=== PATIENT | female | born 1955 | race Caucasian/White ===

== ENCOUNTER 2017-06-12 00:14 | Emergency (ER) | payer OTHER ==
--- NOTE | 2017-06-12 00:48 | ED PDOC ---
Arrival/HPI - General Chief Complaint: Chest Pain Time Seen by Provider: 06/12/17 00:20 Historian: Family - History of Present Illness Narrative History of Present Illness (Text): 06/12/17 00:32 A 62 year old female whose past medical history includes diabetes, CAD, and hypertension, who presents to the emergency department with chest tightness radiating to her neck and palpitations. Patient's son notes she was traveling in a vehicle for about 14 hours today. On arrival to the notes, she had the similar episode a week ago while in [place]. Patient was found to be in SVT and cardioverted after 2 doses of Adenosine. The patient denies symptoms of fever, chills, headache, nausea, vomiting , diarrhea, or any other complaints. Time/Duration: 4-6 hours, Other Symptom Course: Unchanged Quality: Tightness Activities at Onset: Light Context: Sitting, Home Past Medical History - Provider Review Nursing Documentation Reviewed: Yes - Infectious Disease Hx of Infectious Diseases: None - Reproductive Menopause: No - Cardiac Hx Hypertension: Yes - HEENT Hx Cataracts: Yes (c extraction rt eye) - Endocrine/Metabolic Hx Diabetes Mellitus Type 2: Yes - Musculoskeletal/Rheumatological Hx Back Pain: Yes - Gastrointestinal Other/Comment: umbilical hernia - Psychiatric Hx Substance Use: No - Anesthesia Hx Anesthesia: No Family/Social History - Physician Review Nursing Documentation Reviewed: Yes Family/Social History: No Known Family HX Smoking Status: Never Smoked Hx Alcohol Use: No Hx Substance Use: No Allergies/Home Meds Allergies/Adverse Reactions: Allergies No Known Allergies Allergy (Unverified 06/12/17 00:32) Home Medications: Home Meds Medication Instructions Recorded Confirmed Alogliptin Benzoate [Nesina] 25 mg PO DAILY 06/12/17 06/12/17 Aspirin [Aspirin Chewable] 81 mg PO BID 06/12/17 06/12/17 Atorvastatin [Lipitor] 40 mg PO DAILY 06/12/17 06/12/17 Calcium/Vitamin D [Oyster Shell 750 mg PO DAILY 06/12/17 06/12/17 Calcium/Vitamin D 500 mg-200 IU] Chlordiazepoxide/Clidinium Br 1 cap PO DAILY 06/12/17 06/12/17 [Chlordiazepoxide-Clidinium Cap] Gabapentin [Neurontin] 300 mg PO DAILY 06/12/17 06/12/17 Glipizide [Glipizide Xl] 5 mg PO DAILY 06/12/17 06/12/17 Insulin Aspart Prot/Insuln Asp 10 units SC QPM 06/12/17 06/12/17 [Novolog Mix 70-30 Vial] Insulin Aspart Prot/Insuln Asp 40 units SC QAM 06/12/17 06/12/17 [Novolog Mix 70-30 Vial] Lipase/Protease/Amylase [Zenpep Dr 25,000 units PO TID 06/12/17 06/12/17 25,000 Units Capsule] Metoprolol Succinate [Toprol XL] 50 mg PO BID 06/12/17 06/12/17 Amma-3 Fatty Acids/Fish Oil [Fish 1,000 mg PO BID 06/12/17 06/12/17 Oil 1,000 mg Capsule] Ranolazine [Ranexa] 500 mg PO BID 06/12/17 06/12/17 metFORMIN [glucOPHAGE] 500 mg PO BID 06/12/17 06/12/17 Review of Systems - Physician Review All systems were reviewed & negative as marked: Yes - Review of Systems Constitutional: Normal. absent: Fevers Respiratory: Normal. absent: SOB, Cough Cardiovascular: Chest Pain (chest pain radiated to jaw and neck), Palpitations Gastrointestinal: Normal. absent: Diarrhea, Nausea, Vomiting Genitourinary Female: Normal Musculoskeletal: Normal Skin: Normal Neurological: Normal. absent: Headache, Dizziness Physical Exam Vital Signs Reviewed: Yes Vital Signs Temp Pulse Resp BP Pulse Ox 06/12/17 01:40 80 16 145/55 L 97 06/12/17 00:49 98.3 F 81 18 140/49 L 98 06/12/17 00:25 147 H 18 156/59 H 95 Temperature: Afebrile Blood Pressure: Normal Pulse: Tachycardic Respiratory Rate: Normal Appearance: Positive for: Well-Appearing, Non-Toxic, Comfortable Pain Distress: None Mental Status: Positive for: Alert and Oriented X 3 - Systems Exam Head: Present: Atraumatic, Normocephalic Pupils: Present: PERRL Extroacular Muscles: Present: EOMI Conjunctiva: Present: Normal Mouth: Present: Moist Mucous Membranes Neck: Present: Normal Range of Motion Respiratory/Chest: Present: Clear to Auscultation, Good Air Exchange. No: Respiratory Distress, Accessory Muscle Use Cardiovascular: Present: Normal S1, S2, Tachycardic. No: Murmurs Abdomen: Present: Normal Bowel Sounds. No: Tenderness, Distention, Peritoneal Signs Back: Present: Normal Inspection Upper Extremity: Present: Normal Inspection. No: Cyanosis, Edema Lower Extremity: Present: Normal Inspection. No: Edema Neurological: Present: GCS=15, CN II-XII Intact, Speech Normal Skin: Present: Warm, Dry, Normal Color. No: Rashes Psychiatric: Present: Alert, Oriented x 3, Normal Insight, Normal Concentration Medical Decision Making ED Course and Treatment: 06/12/17 00:51 Impression: A 62 year old female patient with chest pain radiating to her neck and palpitations. Plan: -- EKG -- Labs -- Chest X-ray -- Adenosine and Aspirin -- Reassess and disposition Progress Notes: 06/12/17 00:32 EKG: Ordered, reviewed, and independently interpreted the EKG. Rate : 142 BPM Rhythm : SVT Interpretation : Non-specific St- wave changes. 06/12/17 00:45 EKG: Ordered, reviewed, and independently interpreted the EKG. Rate : 82 BPM Rhythm : NSR Interpretation : No acute changes 06/12/17 01:33 Chest X-ray: No acute processes 06/12/17 01:35 Pt. converted to a NSR following administration of Adenosine to treat SVT. 06/12/17 02:03 Discussed results and plan with pt and family. Pt was offered hospital admission for further evaluation and monitoring. Family wishes to follow up outpatient with their PMD. Pt will sign out against medical advice. The patient is choosing to leave against medical advice. I have personally explained to the patient that choosing to do so may result in permanent bodily harm or . I have discussed at great length that without further evaluation and monitoring there may be unforeseen circumstances and/or deterioration causing permanent bodily harm or as a result of their choice. The patient is alert, oriented, and shows the mental capacity to make clear decisions regarding the patients health care at this time. The patient continues to wish to leave against medical advice. In light of the patients decision to leave against medical advice, patient has been advised that they should return to the emergency room immediately if they change their mind at any time, or if their condition begins to change or worsen in any way. - Lab Interpretations Lab Results: 06/12/17 00:35 06/12/17 00:35 Lab Results 06/12/17 00:35: WBC 9.3, RBC 4.45, Hgb 13.4, Hct 37.8, MCV 84.9, MCH 30.1, MCHC 35.4, RDW 12.9, Plt Count 307, MPV 10.0 06/12/17 00:35: Sodium 136, Potassium 4.6, Chloride 101, Carbon Dioxide 23, Anion Gap 17, BUN 16, Creatinine 0.9, Est GFR ( Amer) > 60, Est GFR (Non- Af Amer) > 60, Random Glucose 307 H*, Calcium 9.6, Total Bilirubin 0.4, AST 26, ALT 33, Alkaline Phosphatase 69, Lactate Dehydrogenase 357, Total Creatine Kinase 35, Troponin I < 0.01, Total Protein 7.5, Albumin 4.1, Globulin 3.4, Albumin/Globulin Ratio 1.2 06/12/17 00:35: PT 10.6, INR 0.98, APTT 26.4 - RAD Interpretation Radiology Orders: 06/12/17 00:33 CHEST PORTABLE [RAD] Stat - Medication Orders Current Medication Orders: Discontinued Medications Adenosine (Adenosine 6 Mg/2 Ml Inj) 6 mg IVP STAT STA Stop: 06/12/17 00:33 Last Admin: 06/12/17 00:25 Dose: 6 mg Aspirin (Aspirin) 325 mg PO ONCE STA Stop: 06/12/17 00:42 Last Admin: 06/12/17 00:55 Dose: Aspirin (Aspirin Chewable) Confirm Administered Dose 162 mg .ROUTE .STK-MED ONE Stop: 06/12/17 00:54 Last Admin: 06/12/17 00:54 Dose: 162 mg - Scribe Statement The provider has reviewed the documentation as recorded by the Courtney Sandoval training under Pamela Gallegos Provider Scribe Attestation: All medical record entries made by the Scribe were at my direction and personally dictated by me. I have reviewed the chart and agree that the record accurately reflects my personal performance of the history, physical exam, medical decision making, and the department course for this patient. I have also personally directed, reviewed, and agree with the discharge instructions and disposition. Disposition/Present on Arrival - Present on Arrival Any Indicators Present on Arrival: No History of DVT/PE: No History of Uncontrolled Diabetes: Yes Urinary Catheter: No History of Decub. Ulcer: No History Surgical Site Infection Following: None - Disposition Have Diagnosis and Disposition been Completed?: Yes Diagnosis: SVT (supraventricular tachycardia), Chest pain Disposition: AGAINST MEDICAL ADVICE Disposition Time: 02:05 Condition: GOOD Discharge Instructions (ExitCare): Chest Pain (ED) Referrals: Ana Limon MD [Primary Care Provider] - Follow up with primary Forms: [employer] (Telugu)
[2017-06-12 00:50] VITALS: TEMP 98.3
[2017-06-12 01:02] LABS: HEMOGLOBIN 13.4 gm/dL (12.0-16.0); MEAN CELL VOLUME 84.9 fL (80.0-105.0); MEAN CORPUSCULAR HEMOGLOBIN 30.1 pg (25.0-35.0); MEAN CORPUSCULAR HGB CONC 35.4 g/dl (31.0-37.0); RBC 4.45 10^6/uL (3.5-6.1); RED CELL DISTRIBUTION WIDTH 12.9 % (11.5-14.5); WHITE BLOOD COUNT 9.3 10^3/ul (4.5-11.0)
[2017-06-12 01:06] LABS: ALB/GLOB RATIO 1.2 (1.1-1.8); ALBUMIN 4.1 g/dL (3.0-4.8); ALT/SGPT 33 U/L (7-56); AST/SGOT 26 U/L (15-39); BLOOD UREA NITROGEN 16 mg/dL (7-21); CALCIUM 9.6 mg/dL (8.4-10.5); GFR AFRICAN-AMERICAN > 60; GFR NON-AFRICAN AMERICAN > 60
[2017-06-12 01:12] LABS: INR 0.98 (0.93-1.08); PARTIAL THROMBOPLASTIN TIME 26.4 Seconds (23.7-30.8); PROTHROMBIN TIME 10.6 Seconds (9.9-11.8)
[2017-06-12 01:19] LABS: TROPONIN I < 0.01 ng/mL
[2017-06-12 04:18] VITALS: BP 145/55; PULSE 80; RESP 16; O2SAT 97
--- NOTE | 2017-06-12 13:42 | CARD ---
APPROVED REPORT EKG Measurement Heart [id number] <Conclusion> Supraventricular tachycardia Nonspecific ST abnormality Abnormal ECG
--- NOTE | 2017-06-12 13:42 | CARD ---
APPROVED REPORT EKG Measurement Heart [id number] <Conclusion> Normal sinus rhythm Normal ECG
--- NOTE | 2017-06-12 14:00 | RAD ---
HISTORY: chest pain COMPARISON: No prior. FINDINGS: LUNGS: No active pulmonary disease. PLEURA: No significant pleural effusion identified, no pneumothorax apparent. CARDIOVASCULAR: Likely technically magnified versus intrinsic borderline enlargement. OSSEOUS STRUCTURES: No significant abnormalities. VISUALIZED UPPER ABDOMEN: Normal. OTHER FINDINGS: None. IMPRESSION: No acute pulmonary disease. Likely technical magnification of the cardiac silhouette though borderline and enlargement is not completely excluded.
== END 2017-06-12 02:10 | disposition left against medical advice (07) ==
LOC: ED 00:14
DX: I47.1 Supraventricular tachycardia (principal); R07.9 Chest pain, unspecified; I25.10 Atherosclerotic heart disease of native coronary artery without angina pectoris; I10 Essential (primary) hypertension
CPT/HCPCS: 71010; 80053; 82550; 83615; 84484; 85027; 85610; 85730; 93005; 96374; 99285; J0153